=== PATIENT | male | born 1995 | race Two or more races ===

== ENCOUNTER 2018-02-22 23:15 | Emergency (ER) | payer SELFPAY ==
[~2018-02-22] VITALS: Ht 165.1 cm; Wt 68.0 kg
[2018-02-23] VITALS: BP 125/62
[2018-02-23] MEDS ORDERED: LIDOCAINE 1% PF 2 ML VIAL. INJ ONE (01:00)
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
== END 2018-02-23 01:30 | disposition home or self-care (01) ==
LOC: EEVIPCON 23:15 → ER 23:15
DX: S01.21XA Laceration without foreign body of nose, initial encounter (principal); Y08.89XA Assault by other specified means, initial encounter; Y93.89 Activity, other specified; Y92.89 Other specified places as the place of occurrence of the external cause; Y99.8 Other external cause status
CPT/HCPCS: 12011; 99283